=== PATIENT | male | born 1970 | race Hispanic/Latino ===

== ENCOUNTER 2018-12-11 21:27 | Observation (INO) | payer BC ==
[~2018-12-11] VITALS: Ht 170.2 cm; Wt 101.6 kg
[2018-12-11] MEDS ORDERED: SODIUM CHLORIDE 0.9% 1000 ML BAG IV STA (22:39)
--- NOTE | 2018-12-11 22:39 | Diagnostic Imaging Report ---
EXAMINATION: CXR 2 VIEW - HOPD INDICATION: Dizzy, paresthesias ^[id number] ^2219 COMPARISON: None FINDINGS: PA and lateral views TUBES and LINES: None. LUNGS: Lungs are well inflated. There is no evidence of pneumonia or pulmonary edema. PLEURA: No pleural effusion or pneumothorax. HEART AND MEDIASTINUM: The cardiomediastinal silhouette is unremarkable.. BONES AND SOFT TISSUES: No focal osseous lesions. Soft tissues are unremarkable. UPPER ABDOMEN: No free air under the diaphragm. IMPRESSION: No acute thoracic abnormality. Signed by: Dr. Bennie Rivas MD on 12/11/2018 10:36 PM
[2018-12-11] MEDS ORDERED: SODIUM CHLORIDE 0.9% 1000ML 1,000 ML ONE (22:44)
--- NOTE | 2018-12-11 23:21 | Diagnostic Imaging Report ---
History: Dizzy . Tingling at the fingertips Comparison studies: None Technique: Axial images were obtained from the skull base to the vertex. Coronal and sagittal reconstructions obtained from the axial data. Dose modulation, iterative reconstruction, and/or weight based adjustment of the mA/kV was utilized to reduce the radiation dose to as low as reasonably achievable. Findings: Scalp/skull: No abnormalities. No fractures, blastic or lytic lesions. Extra-axial spaces: No masses. No fluid collections. Brain sulci: Appropriate for age. Ventricles: Normal in size and configuration. No hydrocephalus. Parenchyma: No abnormal densities. No masses, hemorrhage, acute or chronic cortical vascular insults. Sellar/suprasellar region: No abnormalities Craniocervical junction: Patent foramen magnum. No Chiari one malformation. IMPRESSION: No abnormalities . Signed by: DR Yasir Pineda M.D. on 12/11/2018 11:17 PM
[2018-12-11] MEDS ORDERED: SODIUM CHLORIDE FLUSH 10 ML SYR INJ PRN (23:45)
[2018-12-11] MEDS ORDERED: ONDANSETRON HCL INJ 2MG/ML 2ML 2 MG/ML VIAL IV PRN (23:45)
[2018-12-11] MEDS ORDERED: ASPIRIN 81 MG CHEW TAB PO ONE (23:45)
--- OUTSIDE RECORDS SUMMARY | 2018-12-11 23:56 | XMS REPORT ---
Author Author [facility] Address Unknown Phone Unavailable Care Team Providers Care Dock Attendant Name Role Phone ZIGGY AMAYA Unavailable Unavailable Problems This patient has no known problems. Allergies, Adverse Reactions, Alerts This patient has no known allergies or adverse reactions. Medications This patient has no known medications. Results Test Description Test Time Test Comments Text Results Atomic Results Result Comments CT BRAIN WO-HOPD 2018-12-11 23:05:00 [place] [address] Patient Name: HENRY TSE MR #: [id number] : 1970 Age/Sex: 48/M Req #: [id number] [facility] Physician: Ordered by: ZIGGY AMAYA MD Report #: [id number] Location: [facility] Room/Bed: Procedure: [id number] HOPD/CT BRAIN WO-HOPD Exam Date: 12/11/18 Exam Time: 5 REPORT STATUS: Signed History: Dizzy . Tingling at the fingertips Comparison studies: None Technique: Axial images were obtained from the skull base to the vertex. Coronal and sagittal reconstructions obtained from the axial data. Dose modulation, iterative reconstruction, and/or weight based adjustment of the mA/kV was utilized to reduce the radiation dose to as low as reasonably achievable. Findings: Scalp/skull: No abnormalities. No fractures, blastic or lytic lesions. Extra-axial spaces: No masses. No fluid collections. Brain sulci: Appropriate for age. Ventricles: Normal in size and configuration. No hydrocephalus. Parenchyma: No abnormal densities. No masses, hemorrhage, acute or chronic cortical vascular insults. Sellar/suprasellar region: No abnormalities Craniocervical junction: Patent foramen magnum. No Chiari one malformation. IMPRESSION: No abnormalities . Signed by: DR Yasir Pineda M.D. on 12/11/2018 11:17 PM Dictated By: YASIR PAULA MD 16 Transcribed By: DACIA on 12/11/182316 COPY TO: ZIGGY AMAYA MD CXR 2 VIEW - HOPD 2018-12-11 22:35:00 [place] [address] Patient Name: HENRY TSE MR #: [id number] : 1970 Age/Sex: 48/M Req #: [id number] Adm Physician: Ordered by: ZIGGY AMAYA MD Report #: [id number] Location: [facility] Room/Bed: Procedure: [id number] HOPD/CXR 2 VIEW - HOPD Exam Date: 12/11/18 Exam Time: 2214 REPORT STATUS: Signed EXAMINATION: CXR 2 VIEW - HOPD INDICATION: Dizzy, paresthesias [id number] COMPARISON: None FINDINGS: PA and lateral views TUBES and LINES: None. LUNGS: Lungs are well inflated. There is no evidence of pneumonia or pulmonary edema. PLEURA: No pleural effusion or pneumothorax. HEART AND MEDIASTINUM: The cardiomediastinal silhouette is unremarkable.. BONES AND SOFT TISSUES: No focal osseous lesions. Soft tissues are unremarkable. UPPER ABDOMEN: No free air under the diaphragm. IMPRESSION: No acute thoracic abnormality. Signed by: Dr. Isaiah Rivas MD on 12/11/2018 10:36 PM Dictated By: ISAIAH RIVAS MD 35 Transcribed By: DACIA on 12/11/182235 COPY TO: ZIGGY AMAYA MD
[2018-12-12] VITALS (8 sets, daily range): BP systolic 102–124; BP diastolic 54–73
[2018-12-12] MEDS ORDERED: ASPIRIN 81 MG CHEW TAB ONE
--- NOTE | 2018-12-12 06:56 | NUR ---
RECEIVED PATIENT RESTING IN BED. NO ACUTE DISTRESS NOTED. FAMILY MEMBER AT BEDSIDE. PATIENT DENIES PAIN OR DISCOMFORT. CALL LIGHT WITHIN REACH. BED IN THE LOWEST POSITION.
[2018-12-12 07:25] LABS: BASOPHILS # (AUTO) 0.1 (0.0-0.1); BASOPHILS % 1.1 % (0.0-1.0); EOSINOPHILS # (AUTO) 0.2 (0.0-0.4); EOSINOPHILS % 5.1 % (0.0-6.0); HEMOGLOBIN 13.5 g/dL (14.0-18.0); MEAN CORPUSCULAR HGB CONC 34.6 g/dL (31-35); MEAN CORPUSCULAR VOLUME 83.9 fL (81-99); MONOCYTES # (AUTO) 0.6 (0.2-0.8); MONOCYTES % 14.3 % (4.4-11.3); NEUTROPHILS # (AUTO) 2.5 (2.1-6.9); NEUTROPHILS % 55.4 % (38.7-80.0); PLATELET COUNT 213 x10e3/uL (140-360); RED BLOOD COUNT 4.65 x10e6/uL (4.3-5.7); RED CELL DISTRIBUTION WIDTH 13.2 % (11.7-14.4)
[2018-12-12 07:41] LABS: ALANINE AMINOTRANSFERASE 77 IU/L (0-55); ALBUMIN 3.6 g/dL (3.5-5.0); ALBUMIN/GLOBULIN RATIO 1.4 (0.8-2.0); ALKALINE PHOSPHATASE 51 IU/L (40-150); ANION GAP 11.6 mmol/L (8-16); BLOOD UREA NITROGEN 17 mg/dL (7-26); BUN/CREATININE RATIO 18 (6-25); CALCIUM 8.7 mg/dL (8.4-10.2); CARBON DIOXIDE 25 mmol/L (22-29); CHLORIDE 107 mmol/L (98-107); CREATININE, SERUM 0.95 mg/dL (0.72-1.25); EST GLOMERULAR FILTRATION RATE > 60 ML/MIN (60-); GLUCOSE 107 mg/dL (74-118); POTASSIUM 3.6 mmol/L (3.5-5.1); SODIUM 140 mmol/L (136-145)
[2018-12-12 08:43] LABS: CREATINE KINASE MB 4.5 ng/mL (0-5.0)
[2018-12-12] MEDS ORDERED: ASPIRIN 81 MG ENTERIC COATED PO SCH (09:00)
[2018-12-12] MEDS ORDERED: SODIUM CHLORIDE 0.9% 1000ML 1,000 ML IV SCH (09:15)
[2018-12-12] MEDS ORDERED: ONDANSETRON4 MG/2 M1 IV (09:27)
[2018-12-12] MEDS ORDERED: ASPIRIN CHEW81 MG PO (09:27)
[2018-12-12] MEDS ORDERED: ASPIRIN 81 MG CHEW TAB PO ONE (09:30)
[2018-12-12] MEDS ORDERED: LIPITOR20 MG PO (09:31)
[2018-12-12] MEDS ORDERED: ACETAMINOPHEN 325 MG TAB PO PRN (10:15)
[2018-12-12] MEDS ORDERED: FUROSEMIDE INJ 10 MG/ML 4 ML VIAL IV ONE (12:15)
[2018-12-12] MEDS ORDERED: LORAZEPAM INJ 2 MG/ML VIAL IV PRN (12:15)
--- NOTE | 2018-12-12 13:46 | Diagnostic Imaging Report ---
EXAM: Complete Abdominal Ultrasound INDICATION: ^R/O CIRRHOSIS ^[id number] ^1231 COMPARISON: None. TECHNIQUE: Transverse and longitudinal images of the upper abdomen were obtained. FINDINGS: Liver: Size: 17.3 cm in the right midclavicular line, enlarged Appearance: Increased echogenicity, smooth contour Mass: No focal masses Spleen: Size: 10.2 cm in length, normal Echogenicity: Normal Mass: No focal masses Gallbladder: Stones/Sludge: None Wall: 0.2 cm Appearance: No pericholecystic fluid or hydrops. Sonographic Agarwal's Sign: Negative Bile Ducts: Intrahepatic Ducts: No dilatation Extrahepatic Ducts: Common bile duct measures 0.2 cm, no dilatation Pancreas: Not well visualized. Right Kidney: Size: 11 cm Echogenicity: Normal Parenchymal thickness: Normal Collecting System: No hydronephrosis Stone: None Cyst/Mass: None Left Kidney: Size: 9.8 cm Echogenicity: Normal Parenchymal thickness: Normal Collecting System: No hydronephrosis Stone: None Cyst/Mass: None Vessels: Aorta: Not well visualized. Inferior Vena Cava: Visualized portions are normal Main Portal Vein: 1 cm, normal size with hepatopetal flow. Free Fluid: No ascites or pleural effusion IMPRESSION: Enlarged steatotic liver. Signed by: Dr. Ricky Choudhury MD on 12/12/2018 1:43 PM
--- NOTE | 2018-12-12 14:19 | Diagnostic Imaging Report ---
Examination: MRI BRAIN WO CONTRAST History: Dizziness Comparison studies: Head CT /08/2018 Technique: Sagittal T2; axial DWI, FLAIR, GRE or SWI, T1, Coronal FLAIR. Intravenous contrast: None Findings: Significant motion artifact. Scalp: No abnormal signal. No masses. Bone marrow: Normal in signal intensity. Brain volume: Adequate for age. No volume loss. Ventricles: Normal in size and configuration. No hydrocephalus. Extra-axial spaces: No abnormalities. Parenchyma: No masses, hemorrhage, or acute or chronic vascular insults. Suprasellar and sellar region: No abnormalities. Craniocervical junction: No abnormalities. The foramen magnum is patent. No Chiari malformations. Vessels: Normal flow-voids in the arteries and sinuses. Additional findings:Right maxillary sinus retention cyst. IMPRESSION: Despite limitation, no acute abnormalities. Signed by: Dr. Jennifer Macias M.D. on 12/12/2018 2:16 PM
[2018-12-12 14:27] LABS: CHOL/HDL RATIO 5.9 (3.9-4.7)
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
--- NOTE | 2018-12-12 15:24 | NUR ---
RECEIVED DC ORDER FROM GERMAN JIMENEZ. PATIENT IS IN STABLE CONDITION. IV LINE TO RIGHT AC DCD WITH TIP INTACT, PRESSURE APPLIED TO SITE, NO BLEEDING NOTED. DISCHARGE TEACHING PROVIDED TO PATIENT, HE VERBALIZED UNDERSTANDING. DISCHARGE FOLDER WITH DC PAPERWORK AND PRESCRIPTIONS ON HAND. PERSONAL ITEMS ON HAND. PATIENT REFUSED WHEELCHAIR. PATIENT ACCOMPANIED TO PRIVATE AUTO BY STAFF.
[2018-12-12 15:36] LABS: CREATINE KINASE MB 3.7 ng/mL (0-5.0)
[2018-12-12] MEDS ORDERED: FAMOTIDINE 20 MG TAB PO SCH (16:30)
--- NOTE | 2018-12-12 20:24 | Discharge Summary ---
ADMISSION DIAGNOSES: Left-sided weakness, obesity, transaminitis, elevated CK. DISCHARGE DIAGNOSES: Left-sided weakness, obesity, transaminitis, elevated CK. Rule out cerebrovascular accident. HISTORY: None. SURGICAL HISTORY: Left arm surgery. FAMILY HISTORY: The patient's mom and dad have diabetes. The patient's mom had cancer. The patient's aunt had a stroke. SOCIAL HISTORY: Noncontributory. HOSPITAL COURSE: A 48-year-old male complains of left-sided weakness that began the day prior to admission while bowling. He says the room was spinning. He denies shortness of breath, nausea, vomiting, and syncope. Symptoms resolved spontaneously after 15 to 20 minutes. On admission, the patient had a CT of the brain, which was negative. Carotid Doppler was negative. MRI of the brain was negative. The patient was started on aspirin and Lipitor. Neuro was consulted, who cleared the patient for discharge and said he did not have a CVA. The patient was started on IV fluids for the elevated CK. Echo showed an EF of 55 plus percent. The patient will discharge home with new prescriptions for Lipitor and aspirin and follow up with primary care in 1 to 2 weeks. The patient understands discharge instructions and agrees to plan. Dictated by Harriet Mejia NP MD DIVYA Bauer/CRISTO /[id number]
[2018-12-12] MEDS ORDERED: ATORVASTATIN 20 MG TAB PO SCH (21:00)
== END 2018-12-12 15:16 | disposition home or self-care (01) ==
LOC: FSED 21:27 → ERHOLD 23:44 → MED/SURG3 12-12 00:57
PROVIDERS: ADMIT Internal Medicine; ATTEND Internal Medicine
DX: G45.9 Transient cerebral ischemic attack, unspecified (principal); E66.9 Obesity, unspecified; R42 Dizziness and giddiness; R74.0 Nonspecific elevation of levels of transaminase and lactic acid dehydrogenase [LDH]; Z83.3 Family history of diabetes mellitus; Z80.9 Family history of malignant neoplasm, unspecified; Z82.3 Family history of stroke; Z68.35 Body mass index [BMI] 35.0-35.9, adult; R53.1 Weakness
CPT/HCPCS: 36415; 70450; 70551; 71046; 76700; 80048; 80053; 80061; 80076; 80307; 81003; 82550; 82553 ×2; 83036; 84484 ×2; 85025 ×2; 85610; 93005; 93306; 93880; 99284; G0378 ×2; J1940; J2060; J7030 ×2